=== PATIENT | female | born 1990 | race Caucasian/White ===

== ENCOUNTER 2017-09-14 17:06 | Emergency (ER) | payer SELFPAY ==
[2017-09-14 17:08] VITALS: BP 135/85; PULSE 78; RESP 17; TEMP 36.7; O2SAT 97; BMI 39.0
[2017-09-14 17:38] LABS: Bacteria 0 SEEN /hpf (None Seen); Red Blood Cells-Urine 0 SEEN /hpf (0-5)
[2017-09-14 18:09] LABS: Color, Urine Yellow (Yellow); Glucose, Dipstick Normal (Normal); Ketone-Dipstick Negative (Negative); Leukocyte Esterase-Dipstick Negative /ul (Negative); Nitrite-Dipstick Negative (Negative); Occult Blood-Urine 10 /ul (Negative); Protein-Dipstick Negative (Negative); Specific Gravity, Urine 1.025 (1.002-1.030); Urine Bilirubin Dipstick Negative (Negative); Urine Clarity Clear (Clear); Urine Urobilinogen Normal (Normal)
[2017-09-14 18:18] LABS: Internal QC Validated? YES +Cl - CLEAR BKGD; Pregnancy, Urine Negative Negative
[2017-09-14 18:22] LABS: Mucous, Urine RARE /hpf (<or=2+); Squamous Epithelial Cells - UA 0-5 SEEN /hpf (5-10); White Blood Cells 0-5 SEEN /hpf (0-5)
--- NOTE | 2017-09-14 18:37 | CT_ITS ---
STUDY: CT ABDOMEN AND PELVIS WITHOUT CONTRAST REASON FOR EXAM: Female, 27 years old. Right lower quadrant pain RADIATION DOSAGE (If Supplied By Facility): CTDIvol = ( 20.00 ) mGy, DLP = ( 1014.48 ) mGycm TECHNIQUE: Transaxial images were obtained from the dome of the diaphragm to the symphysis pubis without oral contrast, and without intravenous contrast. Sagittal and coronal images were reconstructed. Individualized dose optimization techniques were used for this CT. COMPARISON: None. FINDINGS: The visualized lung bases are unremarkable. The visualized portions of the heart are within normal limits. Normal liver. Cholelithiasis. No significant dilatation of the extrahepatic biliary system. Normal spleen. Normal pancreas. Normal bilateral adrenal glands. Normal right kidney. Normal left kidney. Normal visualized stomach. Normal small intestine. Normal colon. The appendix is visualized and appears normal. Normal abdominal aorta. Normal inferior vena cava. Normal retroperitoneum. There are slightly prominent central mesenteric nodes and slight mesenteric stranding. Normal urinary bladder. Normal uterus. Tubal ligation clips bilaterally. Normal abdominal wall. Limbus vertebrae of T12 and L1. CT/Abdomen/Pelvis without Cont IMPRESSION: Central mesenteric nodes and mesenteric stranding may be due to nonspecific mesenteric adenitis. Cholelithiasis. No CT evidence of appendicitis. Electronically Signed: Lemuel Mckinnon DO at 19:13 EDT Tel [phone], Service support ,
--- NOTE | 2017-09-14 19:45 | ED.VISSUMM ---
- ER Visit Summary Date of Service: 09/14/17 Chief Complaint: Abdominal pain History of Present Illness: The patient is a 27 F who states that today she developed a right lower quadrant abdominal pain. States it started around 11 AM. Patient states she feels achy all over the right side of her body. She states she has had this pain off and on in the past but is definitely worse today. No vomiting or diarrhea. No fevers. No rashes. No vaginal discharge. Last menstrual period was for 1 18. She has had ovarian cyst in the past. Surgical history includes 2 prior C-sections. Physical Examination: Afebrile vital signs are stable Gen: Well-nourished well-developed Head: Normocephalic atraumatic Eyes: Perrl EOMI ENT: TMs clear no rhinorrhea moist mucous membranes Neck: Supple no lymphadenopathy no JVD nontender CVS: Regular rate rhythm no murmurs normal S1-S2 Respiratory: No distress clear to auscultation bilaterally chest nontender Abdomen: Soft right-sided tenderness to palpation without guarding or rebound nondistended normal bowel sounds no masses Back: Nontender Extremity: Nontender no edema Skin: Normal color no rash Neuro: alert orientated ?3 CN II-XII intact normal strength sensation reflexes gait cerebellar Psych: Normal affect normal mood Test Results: Urinalysis and tests were negative. CT the flank demonstrated enlarged lymph nodes consistent with a mesenteric adenitis. Emergency Department Course and Treatment: Patient will receive a dose of Toradol. She will be discharged home with supportive care. Follow-up with her primary care physician or return if worsening. Impression: 1. Acute abdominal pain 2. Mesenteric adenitis This note was generated with [employer] dictation software. It may contain incorrect words, spelling, and punctuation that were not noted in review of the chart prior to signing ED Disposition - Plan for ED Patient: Disposition: Home or Assisted Living Chief Complaint: Abd Pain Instructions: ED Adenitis Mesenteric Referrals: Luis Mccurdy DO [Primary Care Provider] - 3-5 Days if not improving
[2017-09-14] MEDS: Ketorolac 60 MG/2 ML Vial IM (19:59)
[2017-09-14 20:02] VITALS: RESP 18
== END 2017-09-14 20:02 | disposition home or self-care (01) ==
PROVIDERS: Emergency Provider Emergency Medicine; Family Provider Family Medicine; PCP Family Medicine
DX: I88.0 Nonspecific mesenteric lymphadenitis (principal); R10.9 Unspecified abdominal pain; I10 Essential (primary) hypertension; E66.9 Obesity, unspecified; Z72.0 Tobacco use; Z79.899 Other long term (current) drug therapy
CPT/HCPCS: 74176; 81001; 81025; 96372; 99282

== ENCOUNTER 2017-11-08 15:23 | Emergency (ER) | payer SELFPAY ==
--- NOTE | 2017-11-08 15:23 | DT_ITS ---
This patient was seen during an EMR downtime November 06, 2017 - November 13, 2017. This patient may have a combination of paper and electronic documentation or all paper documentation. All documentation is viewable within the e-chart portion of [employer] for each patient visit.
--- NOTE | 2017-11-08 16:40 | CT_ITS ---
STUDY: CT ABDOMEN AND PELVIS WITHOUT CONTRAST REASON FOR EXAM: Female, 27 years old. Right lower quadrant abdominal pain. RADIATION DOSAGE (If Supplied By Facility): CTDIvol = ( 14.80 ) mGy, DLP = ( 792.65 ) mGycm TECHNIQUE: Transaxial images were obtained from the dome of the diaphragm to the symphysis pubis without oral contrast, and without intravenous contrast. Sagittal and coronal images were reconstructed. Individualized dose optimization techniques were used for this CT. COMPARISON: None. FINDINGS: The visualized lung bases are unremarkable. The visualized portions of the heart are within normal limits. Normal liver. There are multiple gallstones. Normal spleen. Normal pancreas. Normal bilateral adrenal glands. Normal right kidney. Normal left kidney. Normal visualized stomach. There is no evidence for dilated bowel, ascites or pneumoperitoneum. The small bowel has a grossly normal appearance. The transverse colon and descending colon is not distended which gives the appearance of mild thickening of the roldan. There is non-visualization of the appendix. Normal abdominal aorta. Normal inferior vena cava. Normal retroperitoneum. Normal urinary bladder. Normal visualized uterus. Surgical clips are visible adjacent to the uterus probably related to tubal ligation. There is a small umbilical hernia containing fat. There appear to be persistent limbus vertebra of T12 and L1. The imaged thoracic and lumbar vertebral bodies have normal height and alignment. CT/Abdomen/Pelvis without Cont IMPRESSION: 1. No CT evidence of acute intra-abdominal disease. 2. Cholelithiasis. Electronically Signed: Corina Shukla MD at 6:42 EDT , Service support ,
[2017-11-11 08:06] LABS: Pregnancy, Serum, hCG Quali. NEGATIVE Negative (0-9 Nonpreg)
[2017-11-11 08:06] LABS: AST(SGOT) 23 U/L (15-37); Alanine Aminotransfer ALT/SGPT 24 U/L (13-56); Albumin, Serum 3.6 g/dL (3.2-5.0); Alkaline Phosphatase 92 U/L (45-117); Bilirubin, Direct < 0.05 mg/dL (0.00-0.30); Cholesterol 115 mg/dL (200); Globulin 3.8 g/dL (2.2-4.2); High Density Lipoprotein 41 mg/dL; Protein, Total 7.4 g/dL (6.4-8.2); Triglycerides 106 mg/dL; Very Low Density Lipoprotein 21 mg/dL (5-40)
[2017-11-11 09:14] LABS: Hematocrit 42.1 % (37-47); Hemoglobin 14.1 g/dl (12.0-15.0); Mean Corp Hgb Conc 33.5 g/gl (32-36); Mean Corpuscular Hgb 29.2 pg (27.0-32.0); Mean Corpuscular Volume 87.2 fL (81-99); Platelet Count 253 K/mm3 (150-450); RBC Distribution Width CV 13.6 % (11.6-14.6); RBC Distribution Width SD 43.1 fl (35.1-43.9); Red Blood Count 4.83 M/mm3 (4.2-5.4); White Blood Count 11.5 K/mm3 (4.4-11.0)
[2017-11-11 09:15] LABS: Mean Platelet Vol. 10.7 fl (6.2-12.0); Scan Indicated on CBC? Y/N NO
[2017-11-11 11:17] LABS: Bacteria 0 SEEN /hpf (None Seen)
[2017-11-11 11:26] LABS: Color, Urine Yellow (Yellow); Glucose, Dipstick NEGATIVE (Normal); Ketone-Dipstick Negative (Negative); Leukocyte Esterase-Dipstick Negative /ul (Negative); Mucous, Urine 1+ /hpf (<or=2+); Nitrite-Dipstick Negative (Negative); Occult Blood-Urine 10 /ul (Negative); Protein-Dipstick Negative (Negative); Red Blood Cells-Urine 0-5 SEEN /hpf (0-5); Squamous Epithelial Cells - UA 0-5 SEEN /hpf (5-10); Urine Bilirubin Dipstick Negative (Negative); Urine Clarity Clear (Clear); Urine Urobilinogen Normal (Normal); White Blood Cells 0-5 SEEN /hpf (0-5)
== END 2017-11-08 19:33 | disposition home or self-care (01) ==
LOC: ED 11-09 16:46
PROVIDERS: Emergency Provider Emergency Medicine; Family Provider Family Medicine; PCP Family Medicine
DX: R10.31 Right lower quadrant pain (principal); R10.9 Unspecified abdominal pain; K80.20 Calculus of gallbladder without cholecystitis without obstruction; I10 Essential (primary) hypertension; Z87.442 Personal history of urinary calculi; Z98.51 Tubal ligation status; F17.200 Nicotine dependence, unspecified, uncomplicated
CPT/HCPCS: 36415; 74176; 80061; 80076; 81001; 84703; 85027; 96361; 96374; 96375; 99283; J7030; A4216; J2405

== ENCOUNTER → 2017-12-04 18:29 | Outpatient (CLI) | payer MEDICAID, SELFPAY ==
[2017-12-05 00:46] LABS: Chlamydia Trachomatis by PCR Negative (Negative); Neisserai gonorrhoeae by PCR Negative (Negative); Probe Check PASS; Sample Adequacy Control PASS; Specimen Processing Control PASS
[2017-12-12 08:44] LABS: HPV APTIMA, High Risk Positive (Negative)
== END ==
PROVIDERS: Family Provider Family Medicine; PCP Family Medicine; Visit Provider Nurse Practitioner Women's Health
DX: Z11.3 Encounter for screening for infections with a predominantly sexual mode of transmission (principal)
CPT/HCPCS: 87491; 87591; 88175; G0145